=== PATIENT | male | born 1985 | race Caucasian/White ===

== ENCOUNTER 2022-08-17 06:01 | Day surgery (SDC) | payer OTHER ==
[2022-08-17] VITALS (12 sets, daily range): BP systolic 102–146; BP diastolic 54–96
[~2022-08-17] VITALS: Ht 182.9 cm; Wt 131.0 kg
[~2022-08-17 06:01] MED LIST: ALBU90OI INH; ALLO300 PO; ATOR40TA PO; BUPR100 PO; DEPOTESTOSTERONE IM; IBUP600 PO; LISI20 PO; METF500 PO; NORVASC2.5 MG PO; TOPI100 PO; VITAMIN D310 MC4 PO; Viagra100 MG PO
--- NOTE | 2022-08-17 11:15 | NUR ---
INTO STEP S/P HERNIA REPAIR. PT IS A&OX X4. DENIES PAIN OR NAUSEA. DRESSING TO MIDLINE ABDOMEN C/D/I X 3-ABDOMINAL BINDER IN PLACE. PT TOLERATING SIPS OF WATER WITHOUT DIFFIUCULTY.
--- NOTE | 2022-08-17 12:11 | NUR ---
Discharge instructions reviewed with patient. Patient verbalizes understanding. Copy given to patient to take home. Patient States Post-Procedure ride home has been arranged.Out via wheelchair with Rx, belongings, and discharge instructions on hand.
== END 2022-08-17 12:15 | disposition home or self-care (01) ==
LOC: ORSCMMR 06:01 → ORD 07:30 → ORSCMMR 07:30
PROVIDERS: Surgery
PROC: 0WUF0JZ Supplement Abdominal Wall with Synthetic Substitute, Open Approach (ICD-10-PCS; principal; 2022-08-17 07:30)
DX: K43.6 Other and unspecified ventral hernia with obstruction, without gangrene (principal); K42.0 Umbilical hernia with obstruction, without gangrene; F41.9 Anxiety disorder, unspecified; E78.5 Hyperlipidemia, unspecified; I10 Essential (primary) hypertension; J45.909 Unspecified asthma, uncomplicated; E11.9 Type 2 diabetes mellitus without complications; E66.01 Morbid (severe) obesity due to excess calories; Z68.39 Body mass index [BMI] 39.0-39.9, adult; Z79.84 Long term (current) use of oral hypoglycemic drugs; Z79.899 Other long term (current) drug therapy
CPT/HCPCS: 82947; A9270; C1781; J0690; J1100; J1885; J2250; J2405; J2704; J3010; J7120

== ENCOUNTER 2022-08-29 20:23 | Emergency (ER) | payer OTHER ==
[~2022-08-29] VITALS: Ht 182.9 cm; Wt 136.1 kg
[2022-08-29 20:41] VITALS: BP 154/98
== END 2022-08-29 22:27 | disposition home or self-care (01) ==
LOC: ER 20:23
DX: Z48.817 Encounter for surgical aftercare following surgery on the skin and subcutaneous tissue (principal); Z88.0 Allergy status to penicillin; Z88.2 Allergy status to sulfonamides; Z79.899 Other long term (current) drug therapy; Z79.84 Long term (current) use of oral hypoglycemic drugs; I10 Essential (primary) hypertension; E11.9 Type 2 diabetes mellitus without complications; M10.9 Gout, unspecified
CPT/HCPCS: 99282